=== PATIENT | male | born 2000 | race Asian ===

== ENCOUNTER 2023-02-11 07:33 | Emergency (ER) | payer SELFPAY ==
[~2023-02-11] VITALS: Ht 165.1 cm; Wt 64.9 kg
[2023-02-11] MEDS ORDERED: ACETAMINOPHEN ES 500 MG TABLET ONE (07:56)
[2023-02-11] MEDS ORDERED: CYCLOBENZAPRINE 10 MG TABLET ONE (07:57)
[2023-02-11] MEDS ORDERED: CYCLOBENZAPRINE 10 MG TABLET PO ONE (08:00)
[2023-02-11] MEDS ORDERED: ACETAMINOPHEN ES 500 MG TABLET PO ONE (08:00)
[2023-02-11] MEDS ORDERED: CYCL10TA9 PO (09:37)
[2023-02-11 10:22] VITALS: BP 120/78; TEMP 98.3; O2SAT 99
== END 2023-02-11 10:22 | disposition home or self-care (01) ==
LOC: ER 07:35
DX: S00.03XA Contusion of scalp, initial encounter (principal); Z60.2 Problems related to living alone; V89.2XXA Person injured in unspecified motor-vehicle accident, traffic, initial encounter; Y93.89 Activity, other specified; Y92.89 Other specified places as the place of occurrence of the external cause; Y99.8 Other external cause status
CPT/HCPCS: 99284; 72125; 70450; L0172